=== PATIENT | male | born 1950 | race Caucasian/White ===

== ENCOUNTER 2019-04-19 21:39 | Inpatient (IN) | payer MEDICARE, OTHER ==
[~2019-04-19] VITALS: Ht 180.3 cm; Wt 92.4 kg
[2019-04-19 22:52] LABS: ALANINE AMINOTRANSFERASE 17 U/L (12-78); ALBUMIN 2.7 G/DL (3.4-5.0); ALBUMIN/GLOBULIN RATIO 0.7 (1.1-1.5); ALKALINE PHOSPHATASE 76 IU/L (46-116); ANION GAP 13 (8-16); ASPARTATE AMINO TRANSFERASE 15 U/L (10-37); BILIRUBIN,TOTAL 0.5 MG/DL (0.1-1.0); BLOOD UREA NITROGEN 51 MG/DL (7-18); BUN/CREATININE RATIO 7.1 (5.4-32.0); CHLORIDE 108 MMOL/L (99-107); CREATININE 7.16 MG/DL (0.60-1.10); GLUCOSE 118 MG/DL (70-104); POTASSIUM 5.7 MMOL/L (3.5-5.1); SODIUM 138 MMOL/L (135-145); TOTAL CARBON DIOXIDE 17.1 MMOL/L (24-32); TOTAL PROTEIN 6.4 G/DL (6.4-8.2); eGFR 8 ML/MIN
[2019-04-19 22:55] LABS: PARTIAL THROMBOPLASTIN TIME 30 SECONDS (22-32)
[2019-04-19 23:37] LABS: BASOPHILS % (AUTO) 0.3 % (0-1); EOSINOPHILS % (AUTO) 0.2 % (0-6); HEMATOCRIT 33.7 % (42.0-52.0); HEMOGLOBIN 11.3 g/dl (14.0-17.9); LYMPHOCYTES # (AUTO) 0.4 X10'3 (1.1-4.8); LYMPHOCYTES % (AUTO) 2.8 % (21-51); MEAN CORPUSCULAR HEMOGLOBIN 30.5 PG (27.0-31.0); MEAN CORPUSCULAR HGB CONC 33.4 g/dL (33.0-36.5); MEAN CORPUSCULAR VOLUME 91.2 FL (78-98); MEAN PLATELET VOLUME 7.8 FL (7.4-10.4); MONOCYTES # (AUTO) 0.4 X10'3 (0-0.9); MONOCYTES % (AUTO) 3.2 % (2-12); NEUTROPHILS # (AUTO) 11.6 X10'3 (1.8-7.7); NEUTROPHILS % (AUTO) 93.5 % (42-75); PLATELET COUNT 307 X10'3 (140-440); RED BLOOD COUNT 3.69 X10'6 (4.70-6.10); RED CELL DISTRIBUTION WIDTH 16.3 % (11.5-14.5); WHITE BLOOD COUNT 12.4 X10'3 (4.5-11.0)
[2019-04-20] VITALS (22 sets, daily range): BP systolic 121–200; BP diastolic 47–102
[2019-04-20] MEDS ORDERED: nitroGLYCERIN 0.4mg/hour patch TD ONE (01:00)
[2019-04-20] MEDS ORDERED: aspirin 81mg tab.chew PO ONE (01:00)
[2019-04-20] MEDS ORDERED: acetaminophen 325mg tablet PO PRN ×2 (02:25)
[2019-04-20] MEDS ORDERED: ipratropium/albuterol 3ml nebule NEB PRN (02:25)
[2019-04-20] MEDS ORDERED: furosemide 10 MG/1 ML 10ml inj IV ONE (02:25)
[2019-04-20] MEDS ORDERED: dextrose ORAL solution 15 GM/59 ML bottle PO PRN ×2 (02:25)
[2019-04-20] MEDS ORDERED: insulin Lispro (HumaLOG) vial - multi-dose SQ SCH (02:25)
[2019-04-20] MEDS ORDERED: glucagon, human recombinant 1mg kit SUBCUT PRN (02:25)
[2019-04-20] MEDS ORDERED: MESSAGE TO PHARMACY PO ONE (02:25)
[2019-04-20] MEDS ORDERED: ondansetron/PF 4mg/2ml inj IV PRN (02:25)
[2019-04-20] MEDS ORDERED: dextrose 50%-water 50ml dispensing syringe IV PRN ×2 (02:25)
--- NOTE | 2019-04-20 02:36 | NUR ---
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
[2019-04-20] MEDS ORDERED: azithromycin/NS 500mg/250ml 250 ML IV SCH (03:00)
[2019-04-20] MEDS ORDERED: CefTRIAXone 2gm/D5W 50ml 50 ML IV SCH (04:00)
[2019-04-20 04:19] LABS: CLARITY,URINE SLIGHTLY CLOUDY (Clear); COLOR,URINE YELLOW (Yellow); GLUCOSE, URINE 100 mg/dl (Neg); KETONES,URINE TRACE mg/dl (Neg); LEUKOCYTE ESTERASE ,URINE NEGATIVE (Neg); NITRITES, URINE NEGATIVE (Neg); OCCULT BLOOD,URINE LARGE (Neg); PROTEIN,URINE >=300 mg/dl (Neg); UROBILINOGEN,URINE 0.2 E.U/dL (0.2-1.0)
[2019-04-20] MEDS ORDERED: labetalol 20mg/4ml (5mg/ml) syringe IV ONE (04:35)
[2019-04-20 04:41] LABS: UA COLLECTION TYPE FOLEY CATH
[2019-04-20 04:49] LABS: FINE GRANULAR CAST 0-3 /LPF (NEGATIVE)
[2019-04-20 04:50] LABS: BACTERIA,URINE NONE SEEN /HPF (Neg); MUCUS STRANDS FEW /LPF (Neg); RBC,URINE 20-50 /HPF (0-2); SQUAMOUS EPITHELIAL CELL,UR NONE SEEN /LPF (FEW); WBC,URINE 0-4 /HPF (0-4)
[2019-04-20] MEDS: minoxidil 2.5mg tablet PO PRN ×2 (04:52→13:22)
[2019-04-20 05:25] LABS: ALANINE AMINOTRANSFERASE 20 U/L (12-78); ALBUMIN 2.8 G/DL (3.4-5.0); ALBUMIN/GLOBULIN RATIO 0.7 (1.1-1.5); ALKALINE PHOSPHATASE 75 IU/L (46-116); ANION GAP 14 (8-16); ASPARTATE AMINO TRANSFERASE 17 U/L (10-37); BILIRUBIN,TOTAL 0.5 MG/DL (0.1-1.0); BLOOD UREA NITROGEN 53 MG/DL (7-18); BUN/CREATININE RATIO 7.1 (5.4-32.0); CALCIUM 8.3 MG/DL (8.5-10.1); CHLORIDE 107 MMOL/L (99-107); GLUCOSE 93 MG/DL (70-104); POTASSIUM 5.3 MMOL/L (3.5-5.1); SODIUM 140 MMOL/L (135-145); TOTAL CARBON DIOXIDE 18.6 MMOL/L (24-32); TOTAL PROTEIN 6.6 G/DL (6.4-8.2); eGFR 7 ML/MIN
[2019-04-20 05:28] LABS: MAGNESIUM 1.8 MG/DL (1.5-2.4); PHOSPHORUS 4.8 MG/DL (2.3-4.5)
--- NOTE | 2019-04-20 06:30 | NUR ---
Patient in room CICU 2011. I have received report from nIGHT RN and had the opportunity to ask questions and assume patient care.
[2019-04-20 07:08] LABS: BASOPHILS % (AUTO) 0.3 % (0-1); EOSINOPHILS % (AUTO) 0.2 % (0-6); HEMATOCRIT 31.9 % (42.0-52.0); HEMOGLOBIN 10.8 g/dl (14.0-17.9); LYMPHOCYTES # (AUTO) 0.6 X10'3 (1.1-4.8); LYMPHOCYTES % (AUTO) 5.7 % (21-51); MEAN CORPUSCULAR HEMOGLOBIN 30.8 PG (27.0-31.0); MEAN CORPUSCULAR VOLUME 90.5 FL (78-98); MEAN PLATELET VOLUME 7.8 FL (7.4-10.4); MONOCYTES % (AUTO) 10.3 % (2-12); NEUTROPHILS # (AUTO) 8.2 X10'3 (1.8-7.7); NEUTROPHILS % (AUTO) 83.5 % (42-75); PLATELET COUNT 294 X10'3 (140-440); RED BLOOD COUNT 3.52 X10'6 (4.70-6.10); RED CELL DISTRIBUTION WIDTH 16.2 % (11.5-14.5); WHITE BLOOD COUNT 9.9 X10'3 (4.5-11.0)
[2019-04-20] MEDS: heparin, porcine 5000 units/ml vial SQ SCH ×2 (07:36→19:52)
[2019-04-20] MEDS: famotidine 20mg tablet PO SCH ×2 (07:36→19:51)
[2019-04-20] MEDS: docusate sod 100mg capsule PO SCH ×2 (07:36→19:52)
[2019-04-20] MEDS: aspirin 81mg tablet.DR PO SCH (07:36)
[2019-04-20] MEDS ORDERED: carVEDilol 3.125mg tablet PO SCH (08:00)
[2019-04-20 08:23] LABS: HEMOGLOBIN A1C 5.3 % (4.5-6.2)
--- NOTE | 2019-04-20 09:25 | NUR ---
DM consult: Patient's A1c is 5.3; DM ed not warranted at this time. Will continue to follow. Addendum: 04/20/19 at [address] Amended: Links added.
--- NOTE | 2019-04-20 12:00 | NUR ---
PER TRISTEN HE WANTS OVERNIGHT PREP DONE FOR CT OF ABD PELVIS AND CT DONE IN THE AM AND THEN NUCLEAR MED SCAN ON MONDAY, ORDERS ARE IN AND PATIENT UPDATED ON POC
[2019-04-20] MEDS: labetalol 100mg tablet PO PRN (17:57)
--- NOTE | 2019-04-20 18:15 | NUR ---
Patient in room CICU 2011. I have received report from BABS Thompson and had the opportunity to ask questions and assume patient care. Patient is awake and alert to person, place, time and events. Patient seated on side of bed eating dinner. Patient without complaints at this time. PIV to right arm x2 saline locked at this time.
--- NOTE | 2019-04-20 19:00 | NUR ---
Called lab to confirm that they have urine sample for the urine specific gravity ordered by . Per [facility] paving and surfacing labourer they have the sample.
[2019-04-20] MEDS: insulin glargine (Lantus) pen - multi-dose SQ SCH (20:58)
[2019-04-20] MEDS ORDERED: diphenhydrAMINE 25mg capsule PO ONE (21:25)
--- NOTE | 2019-04-20 21:32 | NUR ---
Contrast media screening form completed. Patient with possible reaction to the contrast media used during a fluoroscopy of his vertebra. This test was done in [facility] approximately 1992 or 1993. Patient relates that he had a "golf ball size mass from the injection sites and I was in severe pain after." he denies ever being told that he had an allergy to iodine. Suyapa Myers NP called to confirm that we can give the oral contrast media. Advised to call radiology to ask more questions regarding contrast media. Radiology called and spoke with [facility]. She advised that the patient be given the prep for a possible allergy. 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 Phone call to Suyapa Myers NP regarding the information from radiology. She place orders for prophylactic medication in case of allergy.
[2019-04-20] MEDS: diatr meglu/diatrizoate 30ml oral sol.-(3 dose) bottle PO SCH (21:43)
[2019-04-21] VITALS (19 sets, daily range): BP systolic 141–205; BP diastolic 55–96
--- NOTE | 2019-04-21 01:18 | NUR ---
Patient appears to be sleeping throughout tonight. Patient awakens at times to use the urinal, patient is able to stand at bedside without problem. Stand by assistance given. Continues to be A&O x3. confused on time occasionally. Will continue to monitor.
--- NOTE | 2019-04-21 03:16 | NUR ---
Discussed Blood pressure of 165/70 with Suyapa Myers NP. Patient sleeping soundly at this time. Wait until patient wakes up to give medication. BP at 0300 systolic of 170's after patient up to bedside to use urinal, per SALAZAR Myers monitor and allow patient to settle down before treating BP. Will continue to monitor.
--- NOTE | 2019-04-21 04:51 | NUR ---
Bladder Scan post residual void: 163ml. Patient voided unknown amount, patient dumped urinal into sink. Patient educated on not getting out of bed on his own, and to use call light. minimal bleeding noted from his urethra. Patient assisted back to bed. Side rales up, bed low and locked, bed alarm on. Call light in reach, non- skid socks. Patient is A&O x4 to person, place, time and event questions. Forgetful at times re: using call light.
[2019-04-21 06:03] LABS: BASOPHILS # (AUTO) 0.1 X10'3 (0-0.2); BASOPHILS % (AUTO) 1.1 % (0-1); EOSINOPHILS # (AUTO) 0.5 X10'3 (0-0.9); EOSINOPHILS % (AUTO) 6.3 % (0-6); HEMATOCRIT 29.3 % (42.0-52.0); HEMOGLOBIN 10.2 g/dl (14.0-17.9); LYMPHOCYTES # (AUTO) 0.8 X10'3 (1.1-4.8); MEAN CORPUSCULAR HEMOGLOBIN 31.3 PG (27.0-31.0); MEAN CORPUSCULAR HGB CONC 34.9 g/dL (33.0-36.5); MEAN CORPUSCULAR VOLUME 89.6 FL (78-98); MEAN PLATELET VOLUME 7.8 FL (7.4-10.4); MONOCYTES # (AUTO) 0.8 X10'3 (0-0.9); MONOCYTES % (AUTO) 10.7 % (2-12); NEUTROPHILS # (AUTO) 5.3 X10'3 (1.8-7.7); NEUTROPHILS % (AUTO) 70.9 % (42-75); PLATELET COUNT 257 X10'3 (140-440); RED BLOOD COUNT 3.27 X10'6 (4.70-6.10); WHITE BLOOD COUNT 7.5 X10'3 (4.5-11.0)
[2019-04-21 06:13] LABS: ALANINE AMINOTRANSFERASE 19 U/L (12-78); ALBUMIN 2.6 G/DL (3.4-5.0); ALBUMIN/GLOBULIN RATIO 0.8 (1.1-1.5); ALKALINE PHOSPHATASE 65 IU/L (46-116); ANION GAP 14 (8-16); ASPARTATE AMINO TRANSFERASE 16 U/L (10-37); BILIRUBIN,TOTAL 0.3 MG/DL (0.1-1.0); BLOOD UREA NITROGEN 57 MG/DL (7-18); BUN/CREATININE RATIO 7.2 (5.4-32.0); CALCIUM 8.2 MG/DL (8.5-10.1); CHLORIDE 108 MMOL/L (99-107); CREATININE 7.87 MG/DL (0.60-1.10); GLUCOSE 88 MG/DL (70-104); MAGNESIUM 1.8 MG/DL (1.5-2.4); PHOSPHORUS 5.5 MG/DL (2.3-4.5); POTASSIUM 4.9 MMOL/L (3.5-5.1); SODIUM 141 MMOL/L (135-145); eGFR 7 ML/MIN
--- NOTE | 2019-04-21 06:49 | NUR ---
Problems reprioritized. Patient report given, questions answered & plan of care reviewed with BABS Diallo.
--- NOTE | 2019-04-21 07:03 | NUR ---
Patient in room CICU 2011. I have received report from BABS Hampton and had the opportunity to ask questions and assume patient care.
[2019-04-21] MEDS: furosemide 40mg/4ml inj IV SCH (08:18)
[2019-04-21] MEDS: docusate sod 100mg capsule PO SCH ×2 (08:18→20:00)
[2019-04-21] MEDS: famotidine 20mg tablet PO SCH ×2 (08:18→21:11)
[2019-04-21] MEDS: aspirin 81mg tablet.DR PO SCH (08:18)
[2019-04-21] MEDS: heparin, porcine 5000 units/ml vial SQ SCH ×2 (08:19→21:11)
[2019-04-21] MEDS: diatr meglu/diatrizoate 30ml oral sol.-(3 dose) bottle PO SCH ×2 (08:21→13:55)
[2019-04-21] MEDS ORDERED: minoxidil 2.5mg tablet PO SCH (08:50)
[2019-04-21] MEDS: minoxidil 2.5mg tablet PO SCH ×3 (13:46→21:12)
--- NOTE | 2019-04-21 15:45 | NUR ---
Patient report given to BABS Danielson. Pt. transferred via wheelchair to room 3016 with BABS Danielson.
--- NOTE | 2019-04-21 18:03 | NUR ---
It was discovered that Pharmacy had inadvertently placed a similar sounding med in this pt's patient specific box. I phoned pharmacy and they well switch it out.
--- NOTE | 2019-04-21 18:25 | NUR ---
Patient in room PCU 3016. I have received report from Art RN and had the opportunity to ask questions and assume patient care.
--- NOTE | 2019-04-21 19:05 | NUR ---
Pt BP was 192/96. Art RN administered Minoxidil as ordered. Will continue to monitor
[2019-04-21] MEDS: labetalol 100mg tablet PO PRN (20:06)
[2019-04-21] MEDS: insulin glargine (Lantus) pen - multi-dose SQ SCH (21:00)
[2019-04-22] VITALS (9 sets, daily range): BP systolic 151–204; BP diastolic 51–88
[2019-04-22] MEDS ORDERED: lactulose 20gm/30ml cup PO PRN (02:25)
--- NOTE | 2019-04-22 06:17 | NUR ---
Problems reprioritized. Patient report given, questions answered & plan of care reviewed with Moon BRICE.
--- NOTE | 2019-04-22 06:33 | NUR ---
Patient in room PCU 3016. I have received report from BABS Meyer and had the opportunity to ask questions and assume patient care.
[2019-04-22 06:59] LABS: BASOPHILS # (AUTO) 0.1 X10'3 (0-0.2); BASOPHILS % (AUTO) 1.1 % (0-1); EOSINOPHILS # (AUTO) 0.6 X10'3 (0-0.9); EOSINOPHILS % (AUTO) 8.1 % (0-6); HEMATOCRIT 29.3 % (42.0-52.0); HEMOGLOBIN 9.9 g/dl (14.0-17.9); LYMPHOCYTES # (AUTO) 0.7 X10'3 (1.1-4.8); LYMPHOCYTES % (AUTO) 9.2 % (21-51); MEAN CORPUSCULAR HEMOGLOBIN 31.4 PG (27.0-31.0); MEAN CORPUSCULAR HGB CONC 33.6 g/dL (33.0-36.5); MEAN CORPUSCULAR VOLUME 93.2 FL (78-98); MEAN PLATELET VOLUME 7.9 FL (7.4-10.4); MONOCYTES # (AUTO) 0.8 X10'3 (0-0.9); MONOCYTES % (AUTO) 10.7 % (2-12); NEUTROPHILS # (AUTO) 5.4 X10'3 (1.8-7.7); NEUTROPHILS % (AUTO) 70.9 % (42-75); PLATELET COUNT 214 X10'3 (140-440); RED BLOOD COUNT 3.15 X10'6 (4.70-6.10); RED CELL DISTRIBUTION WIDTH 16.6 % (11.5-14.5); WHITE BLOOD COUNT 7.6 X10'3 (4.5-11.0)
[2019-04-22 07:18] LABS: ALANINE AMINOTRANSFERASE 17 U/L (12-78); ALBUMIN 2.2 G/DL (3.4-5.0); ALBUMIN/GLOBULIN RATIO 0.7 (1.1-1.5); ALKALINE PHOSPHATASE 59 IU/L (46-116); ANION GAP 13 (8-16); ASPARTATE AMINO TRANSFERASE 17 U/L (10-37); BILIRUBIN,TOTAL 0.2 MG/DL (0.1-1.0); BLOOD UREA NITROGEN 58 MG/DL (7-18); BUN/CREATININE RATIO 7.1 (5.4-32.0); CALCIUM 7.8 MG/DL (8.5-10.1); CHLORIDE 110 MMOL/L (99-107); GLUCOSE 90 MG/DL (70-104); MAGNESIUM 1.8 MG/DL (1.5-2.4); PHOSPHORUS 5.4 MG/DL (2.3-4.5); POTASSIUM 4.7 MMOL/L (3.5-5.1); SODIUM 140 MMOL/L (135-145); TOTAL PROTEIN 5.3 G/DL (6.4-8.2); eGFR 7 ML/MIN
[2019-04-22] MEDS: furosemide 40mg/4ml inj IV SCH (07:46)
[2019-04-22] MEDS: heparin, porcine 5000 units/ml vial SQ SCH ×2 (07:46→21:07)
[2019-04-22] MEDS: famotidine 20mg tablet PO SCH ×2 (07:47→21:06)
[2019-04-22] MEDS: aspirin 81mg tablet.DR PO SCH (07:47)
[2019-04-22] MEDS: minoxidil 2.5mg tablet PO SCH ×4 (07:47→21:06)
[2019-04-22] MEDS: docusate sod 100mg capsule PO SCH ×2 (07:47→21:06)
[2019-04-22] MEDS ORDERED: METF500T PO (10:39)
[2019-04-22] MEDS ORDERED: POTA-82 PO (10:39)
[2019-04-22] MEDS ORDERED: FURO40TA4 PO (10:39)
[2019-04-22] MEDS ORDERED: CARV-49 PO (10:39)
[2019-04-22] MEDS: furosemide 40mg tablet PO SCH ×2 (11:37→21:05)
--- NOTE | 2019-04-22 16:47 | NUR ---
24hr Urine collection taken to lab
[2019-04-22 17:24] LABS: UREA NITROGEN 24HR,URINE 3.4 GM/24HR (7-20)
--- NOTE | 2019-04-22 18:00 | NUR ---
Problems reprioritized. Patient report given, questions answered & plan of care reviewed with BABS Meyer .
--- NOTE | 2019-04-22 18:30 | NUR ---
Patient in room PCU 3016. I have received report from Moon BRICE and had the opportunity to ask questions and assume patient care.
[2019-04-22] MEDS: labetalol 100mg tablet PO PRN (18:36)
--- NOTE | 2019-04-22 18:41 | NUR ---
Pt BP was 204/86 on left arm. 198/88 on right arm. Gave PRN Labetalol PO as ordered will recheck
[2019-04-22] MEDS: insulin glargine (Lantus) pen - multi-dose SQ SCH (21:00)
[2019-04-23 03:00] VITALS: BP 151/59
[2019-04-23 06:00] VITALS: BP 169/67
[2019-04-23 06:08] LABS: BASOPHILS # (AUTO) 0.1 X10'3 (0-0.2); BASOPHILS % (AUTO) 0.9 % (0-1); EOSINOPHILS # (AUTO) 0.6 X10'3 (0-0.9); EOSINOPHILS % (AUTO) 9.1 % (0-6); HEMATOCRIT 27.5 % (42.0-52.0); HEMOGLOBIN 9.7 g/dl (14.0-17.9); LYMPHOCYTES # (AUTO) 0.6 X10'3 (1.1-4.8); LYMPHOCYTES % (AUTO) 7.8 % (21-51); MEAN CORPUSCULAR HEMOGLOBIN 31.6 PG (27.0-31.0); MEAN CORPUSCULAR HGB CONC 35.1 g/dL (33.0-36.5); MEAN CORPUSCULAR VOLUME 90.1 FL (78-98); MEAN PLATELET VOLUME 7.5 FL (7.4-10.4); MONOCYTES # (AUTO) 0.8 X10'3 (0-0.9); MONOCYTES % (AUTO) 11.1 % (2-12); NEUTROPHILS % (AUTO) 71.1 % (42-75); PLATELET COUNT 226 X10'3 (140-440); RED BLOOD COUNT 3.05 X10'6 (4.70-6.10); RED CELL DISTRIBUTION WIDTH 15.9 % (11.5-14.5); WHITE BLOOD COUNT 7.1 X10'3 (4.5-11.0)
--- NOTE | 2019-04-23 06:15 | NUR ---
Problems reprioritized. Patient report given, questions answered & plan of care reviewed with Moon BRICE.
--- NOTE | 2019-04-23 06:22 | NUR ---
Patient in room PCU 3016. I have received report from BABS Meyer and had the opportunity to ask questions and assume patient care.Pt in bed resting comfortably
[2019-04-23 06:26] LABS: ALANINE AMINOTRANSFERASE 20 U/L (12-78); ALBUMIN 2.3 G/DL (3.4-5.0); ALBUMIN/GLOBULIN RATIO 0.7 (1.1-1.5); ALKALINE PHOSPHATASE 64 IU/L (46-116); ANION GAP 12 (8-16); ASPARTATE AMINO TRANSFERASE 15 U/L (10-37); BILIRUBIN,TOTAL 0.2 MG/DL (0.1-1.0); BLOOD UREA NITROGEN 57 MG/DL (7-18); BUN/CREATININE RATIO 6.6 (5.4-32.0); CALCIUM 7.7 MG/DL (8.5-10.1); CHLORIDE 109 MMOL/L (99-107); CREATININE 8.58 MG/DL (0.60-1.10); GLUCOSE 114 MG/DL (70-104); MAGNESIUM 1.7 MG/DL (1.5-2.4); PHOSPHORUS 5.6 MG/DL (2.3-4.5); POTASSIUM 4.8 MMOL/L (3.5-5.1); SODIUM 141 MMOL/L (135-145); TOTAL CARBON DIOXIDE 20.5 MMOL/L (24-32); TOTAL PROTEIN 5.4 G/DL (6.4-8.2); eGFR 6 ML/MIN
[2019-04-23] MEDS: docusate sod 100mg capsule PO SCH ×2 (07:16→22:15)
[2019-04-23] MEDS: heparin, porcine 5000 units/ml vial SQ SCH ×2 (07:16→22:20)
[2019-04-23] MEDS: famotidine 20mg tablet PO SCH ×2 (07:16→22:15)
[2019-04-23] MEDS: minoxidil 2.5mg tablet PO SCH ×4 (07:16→22:15)
[2019-04-23] MEDS: aspirin 81mg tablet.DR PO SCH (07:16)
[2019-04-23] MEDS: furosemide 40mg tablet PO SCH ×2 (07:16→22:16)
[2019-04-23] MEDS: furosemide 40mg/4ml inj IV SCH (08:00)
--- NOTE | 2019-04-23 09:19 | NUR ---
Pt has not met protocol during stay. Accucheks are wnl. Ok to d/c per Dr slaughter
[2019-04-23 11:00] VITALS: BP 165/70
[2019-04-23 16:05] VITALS: BP 183/72
[2019-04-23] MEDS: labetalol 100mg tablet PO PRN (16:09)
[2019-04-23 18:00] VITALS: BP 133/51
--- NOTE | 2019-04-23 18:15 | NUR ---
Problems reprioritized. Patient report given, questions answered & plan of care reviewed with BABS Chow .
--- NOTE | 2019-04-23 18:38 | NUR ---
Patient in room PCU 3016. I have received report from Mary Ellen Hope and had the opportunity to ask questions and assume patient care.
[2019-04-23] MEDS: insulin glargine (Lantus) pen - multi-dose SQ SCH (21:00)
[2019-04-23 22:00] VITALS: BP 157/58
[2019-04-24 02:00] VITALS: BP 104/75
[2019-04-24 05:22] LABS: BASOPHILS # (AUTO) 0.1 X10'3 (0-0.2); BASOPHILS % (AUTO) 0.8 % (0-1); EOSINOPHILS # (AUTO) 0.6 X10'3 (0-0.9); EOSINOPHILS % (AUTO) 9.1 % (0-6); HEMOGLOBIN 9.4 g/dl (14.0-17.9); LYMPHOCYTES # (AUTO) 0.7 X10'3 (1.1-4.8); LYMPHOCYTES % (AUTO) 10.1 % (21-51); MEAN CORPUSCULAR HEMOGLOBIN 31.2 PG (27.0-31.0); MEAN CORPUSCULAR HGB CONC 34.7 g/dL (33.0-36.5); MEAN PLATELET VOLUME 7.8 FL (7.4-10.4); MONOCYTES # (AUTO) 0.8 X10'3 (0-0.9); MONOCYTES % (AUTO) 11.8 % (2-12); NEUTROPHILS # (AUTO) 4.5 X10'3 (1.8-7.7); NEUTROPHILS % (AUTO) 68.2 % (42-75); PLATELET COUNT 230 X10'3 (140-440); RED CELL DISTRIBUTION WIDTH 15.9 % (11.5-14.5); WHITE BLOOD COUNT 6.7 X10'3 (4.5-11.0)
[2019-04-24 05:43] LABS: ALANINE AMINOTRANSFERASE 22 U/L (12-78); ALBUMIN 2.4 G/DL (3.4-5.0); ALBUMIN/GLOBULIN RATIO 0.8 (1.1-1.5); ALKALINE PHOSPHATASE 59 IU/L (46-116); ANION GAP 10 (8-16); ASPARTATE AMINO TRANSFERASE 19 U/L (10-37); BILIRUBIN,TOTAL 0.3 MG/DL (0.1-1.0); BLOOD UREA NITROGEN 58 MG/DL (7-18); BUN/CREATININE RATIO 6.5 (5.4-32.0); CALCIUM 7.5 MG/DL (8.5-10.1); CHLORIDE 109 MMOL/L (99-107); CREATININE 8.94 MG/DL (0.60-1.10); GLUCOSE 97 MG/DL (70-104); MAGNESIUM 1.8 MG/DL (1.5-2.4); PHOSPHORUS 5.8 MG/DL (2.3-4.5); POTASSIUM 4.5 MMOL/L (3.5-5.1); SODIUM 140 MMOL/L (135-145); TOTAL CARBON DIOXIDE 21.2 MMOL/L (24-32); TOTAL PROTEIN 5.3 G/DL (6.4-8.2); eGFR 6 ML/MIN
[2019-04-24 06:00] VITALS: BP 157/62
--- NOTE | 2019-04-24 06:51 | NUR ---
Problems reprioritized. Patient report given, questions answered & plan of care reviewed with Mary Ellen Hope.
[2019-04-24] MEDS: minoxidil 2.5mg tablet PO SCH ×3 (07:30→16:51)
[2019-04-24] MEDS: docusate sod 100mg capsule PO SCH (07:30)
[2019-04-24] MEDS: furosemide 40mg tablet PO SCH (07:30)
[2019-04-24] MEDS: heparin, porcine 5000 units/ml vial SQ SCH (07:30)
[2019-04-24] MEDS: aspirin 81mg tablet.DR PO SCH (07:30)
[2019-04-24] MEDS: famotidine 20mg tablet PO SCH (07:31)
--- NOTE | 2019-04-24 09:49 | NUR ---
Initial: Pt admit with hypertensive crisis, acute resp distress, and acute renal failure. Per MD progress notes pt may need HD. Pt currently with 1.5L fluid restriction on renal diet with documented 100% PO intake meeting nutrient needs. [facility] 04/23. No nutrition diagnosis at this time. Will continue to follow. Recommendations: 1) Continue with renal diet with fluid restriction per MD 2) May benefit from phos binder, pending poss HD 3) Wt per rx Addendum: 04/24/19 at [address] Amended: Links added.
[2019-04-24] MEDS ORDERED: LABE100T5 PO (10:13)
[2019-04-24] MEDS ORDERED: MINO2.5T19 PO (10:13)
[2019-04-24 15:00] VITALS: BP 172/65
[2019-04-24 15:08] LABS: ATYPICAL PANCA <1:20 titer (Neg:<1:20); CYTOPLASMIC (C-ANCA) <1:20 titer (Neg:<1:20); PERINUCLEAR (P-ANCA) <1:20 titer (Neg:<1:20)
--- NOTE | 2019-04-24 15:19 | NUR ---
follow appointment with [facility] in [address] Contreras in week with Dr Mckee May 01 @ 11am
[2019-04-24] MEDS: labetalol 100mg tablet PO PRN (16:51)
--- NOTE | 2019-04-24 17:02 | NUR ---
Pt discharged with all belongings and discharge instructions. He walked [facility] where sister was waiting with private car to transport home.
== END 2019-04-24 16:55 | disposition home or self-care (01) | DRG 280 ==
LOC: ER 21:41 → SUR 3N 04-20 04:40 → CICU 2S 04-20 04:57 → PCU 3S 04-21 15:27
PROVIDERS: ADMIT Internal Medicine Critical Care Medicine; ATTEND Internal Medicine Critical Care Medicine
PROC: CT131ZZ Planar Nuclear Medicine Imaging of Kidneys, Ureters and Bladder using Technetium 99m (Tc-99m) (ICD-10-PCS; principal; 2019-04-22)
DX: I21.4 Non-ST elevation (NSTEMI) myocardial infarction (principal); G93.41 Metabolic encephalopathy; J18.1 Lobar pneumonia, unspecified organism; I16.1 Hypertensive emergency; N17.9 Acute kidney failure, unspecified; J90 Pleural effusion, not elsewhere classified; N04.9 Nephrotic syndrome with unspecified morphologic changes; E11.22 Type 2 diabetes mellitus with diabetic chronic kidney disease; I13.10 Hypertensive heart and chronic kidney disease without heart failure, with stage 1 through stage 4 chronic kidney disease, or unspecified chronic kidney disease; N18.9 Chronic kidney disease, unspecified; G89.29 Other chronic pain; M54.9 Dorsalgia, unspecified; N28.1 Cyst of kidney, acquired; Z60.2 Problems related to living alone; Z91.14 Patient's other noncompliance with medication regimen; Z79.899 Other long term (current) drug therapy
CPT/HCPCS: 36415; 70450; 71045; 74176; 78707; 80053; 81001; 82570; 82948; 83036; 83605; 83735; 84100; 84145; 84153; 84156; 84484; 84560; 85025; 85610; 85730; 86256; 87040; 87081; 93005; 93306; 93975; 94760; 96374; 97116; 97161; 97530; 99285; A9562; G0378; J0696; J1644; J1815; J1940; J3490; Q0163; Q9963

== ENCOUNTER 2019-05-20 08:40 | Day surgery (SDC) | payer MEDICARE ==
[~2019-05-20] VITALS: Ht 175.3 cm; Wt 111.9 kg
[~2019-05-20 08:40] MED LIST: CARV-49 PO; FURO40TA4 PO; LABE100T5 PO; METF500T PO; MINO2.5T19 PO
[2019-05-20] MEDS ORDERED: normal saline 1000ml 1,000 ML IV SCH (09:00)
[2019-05-20] MEDS ORDERED: MINO2.5T19 PO (09:11)
[2019-05-20] MEDS ORDERED: MULT80TA (09:11)
[2019-05-20] MEDS ORDERED: LABE100T5 PO (09:11)
[2019-05-20] MEDS ORDERED: FLO0.1T PO (09:11)
[2019-05-20 09:28] LABS: BASOPHILS # (AUTO) 0.1 X10'3 (0-0.2); EOSINOPHILS # (AUTO) 0.5 X10'3 (0-0.9); EOSINOPHILS % (AUTO) 6.8 % (0-6); HEMATOCRIT 25.1 % (42.0-52.0); HEMOGLOBIN 8.6 g/dl (14.0-17.9); LYMPHOCYTES # (AUTO) 0.5 X10'3 (1.1-4.8); LYMPHOCYTES % (AUTO) 7.3 % (21-51); MEAN CORPUSCULAR HEMOGLOBIN 31.5 PG (27.0-31.0); MEAN CORPUSCULAR HGB CONC 34.2 g/dL (33.0-36.5); MEAN CORPUSCULAR VOLUME 92.1 FL (78-98); MEAN PLATELET VOLUME 7.9 FL (7.4-10.4); MONOCYTES # (AUTO) 0.8 X10'3 (0-0.9); MONOCYTES % (AUTO) 11.6 % (2-12); NEUTROPHILS # (AUTO) 5.4 X10'3 (1.8-7.7); NEUTROPHILS % (AUTO) 73.3 % (42-75); PLATELET COUNT 210 X10'3 (140-440); RED BLOOD COUNT 2.72 X10'6 (4.70-6.10); RED CELL DISTRIBUTION WIDTH 16.3 % (11.5-14.5); WHITE BLOOD COUNT 7.3 X10'3 (4.5-11.0)
[2019-05-20 09:29] VITALS: BP 159/65
[2019-05-20 09:37] LABS: ALBUMIN 3.1 G/DL (3.4-5.0); ANION GAP 18 (8-16); BLOOD UREA NITROGEN 90 MG/DL (7-18); BUN/CREATININE RATIO 8.5 (5.4-32.0); CHLORIDE 105 MMOL/L (99-107); CREATININE 10.61 MG/DL (0.60-1.10); GLUCOSE 88 MG/DL (70-104); POTASSIUM 5.5 MMOL/L (3.5-5.1); SODIUM 137 MMOL/L (135-145); eGFR 5 ML/MIN
[2019-05-20 09:46] LABS: TOTAL CARBON DIOXIDE 14.3 MMOL/L (24-32)
[2019-05-20] MEDS ORDERED: LIDOcaine 1%/PF 5ML 10 MG/ML VIAL SQ ONE (09:50)
[2019-05-20] MEDS ORDERED: heparin 1,000 units/ml 10ml inj ICATH ONE (09:50)
[2019-05-20] MEDS ORDERED: fentaNYL/PF 50MCG/1 ML 2ML syringe IV PRN (09:50)
[2019-05-20] MEDS ORDERED: midazolam 2 mg/2 ml injection IV PRN (09:50)
[2019-05-20] MEDS ORDERED: fentaNYL/PF 50MCG/1 ML 2ML syringe ONE (09:59)
[2019-05-20] MEDS ORDERED: midazolam 2 mg/2 ml injection ONE (09:59)
[2019-05-20] MEDS ORDERED: LIDOcaine 1%/PF 5ML 10 MG/ML VIAL ONE (09:59)
[2019-05-20] MEDS ORDERED: heparin 1,000unit/ml 10ml vial 10 ML ONE (09:59)
[2019-05-20 10:53] VITALS: BP 99/56
[2019-05-20 11:11] VITALS: BP 123/46
[2019-05-20 11:27] VITALS: BP 167/64
[2019-05-20 11:38] VITALS: BP 165/61
[2019-05-20 11:52] VITALS: BP 154/74
== END 2019-05-20 12:05 | disposition home or self-care (01) ==
LOC: SSTAY O 08:40
PROVIDERS: ATTEND Radiology Diagnostic Radiology
DX: I12.0 Hypertensive chronic kidney disease with stage 5 chronic kidney disease or end stage renal disease (principal); N18.5 Chronic kidney disease, stage 5; Z87.442 Personal history of urinary calculi; Z87.11 Personal history of peptic ulcer disease; Z98.890 Other specified postprocedural states; Z72.89 Other problems related to lifestyle; Z79.899 Other long term (current) drug therapy
CPT/HCPCS: 36415; 36558; 76937; 77001; 80048; 82948; 85025; 85610; 99152; 99153; C1750; C1894; J1644; J2250; J3010; J7030; A9270